=== PATIENT | female | born 1960 | race Caucasian/White ===

== ENCOUNTER 2017-06-16 10:31 | Emergency (ER) | payer BC, OTHER ==
[2017-06-16 10:46] VITALS: BP 149/77; PULSE 93; TEMP 98.1; BMI 30.2
--- NOTE | 2017-06-16 10:48 | PDOC ---
History of Present Illness - General Chief Complaint: Pain Stated Complaint: LLQ ABD PAIN Time Seen by Provider: 06/16/17 10:47 History Source: Patient Exam Limitations: No Limitations - History of Present Illness Initial Comments: 06/16/17 11:01 This is a 56-year-old female who comes in complaining of left lower quadrant abdominal pain 3 days. Patient denies any fevers, chills, nausea, vomiting or diarrhea. Patient went to an urgent care center and was told to come to the emergency room for CAT scan to rule out diverticulitis. Patient does have a history of diverticulosis. Patient also is complaining of some chronic back pain. Patient said the back pain however is chronic and she takes Tylenol for the pain. PAST MEDICAL HISTORY: Acute myelogenous leukemia in remission, high cholesterol , PAST SURGICAL HISTORY: no significant history FAMILY HISTORY: no pertinant history SOCIAL HISTORY: Pt lives with family and is employed. MEDICATIONS: reviewed ALLERGIES: As per nursing notes Review of Systems General: No fevers or chills, no weakness, no weight loss HEENT: No change in vision. No sore throat,. No ear pain CardioVascular: No chest pain or shortness of breath Respiratory:No cough, or wheezing. Gastrointestinal: no nausea, vomitting, diarrhea or constipation, No rectal bleeding, abdominal pain as per history of present illness Genitourinary: No dysuria, hematuria, or frequency Musculoskeletal: No joint or muscle pain or swelling Neurologic: No headache, vertigo, dizziness or loss of consciousness Psychiatric: nor depression Skin: No rashes or easy bruising Endocrine: no increased thirst or abnormal weight change Allergic: no skin or latex allergy All other systems reviewed and normal Exam: General: Well-nourished well-developed individual, no acute distress HEENT: Throat: Normal, tonsils normal, no erythema or exudate Neck: Supple, no meningeal signs, no lymphadenopathy Eyes::Pupils equal reactive and round, extraocular motion intact Chest: Nontender to palpation Cardiac: S1-S2 normal, regular rate and rhythm, no murmurs rubs or gallops Respiratory: Lungs clear to auscultation bilateral Abdomen: Soft, nondistended, normal bowel sounds, mildly tender to palpation across the lower abdomen no guarding or rebound. Extremities: Warm, dry, no cyanosis, clubbing, or edema Skin: No rashes Neuro: Alert and oriented x3, CN II - XII intact, nonfocal exam with normal strength, normal sensation, normal reflexes, normal gait, Psych: Normal mood and affect Medical decision making: This is a 56-year-old female who comes in complaining of abdominal pain. On exam patient does have pain across the lower abdomen, patient has a known history of diverticulosis, Will obtain labs: CBC, comp, lipase Will do a CT scan to rule out intra-abdominal pathology/ diverticulitis Will give fluids and patient does not want pain medication at this time Will reassess, follow up on labs and CT Past History - Past Medical History Allergies/Adverse Reactions: Allergies Allergy/AdvReac Type Severity Reaction Status Date / Time Sulfa (Sulfonamide Allergy Intermediate Swelling Verified 06/16/17 10:32 Antibiotics) Penicillins Allergy Mild Hives Verified 06/16/17 10:32 vancomycin Allergy Mild Swelling Verified 06/16/17 10:32 Home Medications: Ambulatory Orders Lisinopril [Prinivil] 2.5 mg PO DAILY 01/16/13 Acetaminophen [Tylenol Extra Strength] 1,000 mg PO Q6H PRN 08/11/14 Levocetirizine Dihydrochloride [Xyzal] 5 mg PO PRN PRN 08/11/14 Levofloxacin [Levaquin -] 500 mg PO DAILY #10 tablet 06/16/17 Metronidazole [Flagyl -] 500 mg PO BID #20 tablet 06/16/17 Anemia: Yes (THROMBCYTOPENIA) Cancer: Yes (AML (On remission). BONE MARROW TRANSPLANT) COPD: No - Immunization History Immunization Up to Date: No - Suicide/Smoking/Psychosocial Hx Smoking Status: No Smoking History: Never smoked Have you smoked in the past 12 months: No Number of Cigarettes Smoked Daily: 0 Information on smoking cessation initiated: No Hx Alcohol Use: Yes (SOCIAL) Drug/Substance Use Hx: No Substance Use Type: None *Physical Exam - Vital Signs Last Vital Signs Temp Pulse Resp BP Pulse Ox 98.1 F 93 H 20 149/77 97 06/16/17 10:32 06/16/17 10:32 06/16/17 10:32 06/16/17 10:32 06/16/17 10:32 ED Treatment Course - LABORATORY CBC & Chemistry Diagram: 06/16/17 11:20 06/16/17 12:00 *DC/Admit/Observation/Transfer Diagnosis at time of Disposition: Diverticulitis - Discharge Dispostion Disposition: HOME Admit: No - Prescriptions Prescriptions: Levofloxacin [Levaquin -] 500 mg PO DAILY #10 tablet Metronidazole [Flagyl -] 500 mg PO BID #20 tablet - Referrals - Patient Instructions Additional Instructions: Take Levaquin 1 tablet a day for 10 days Take Flagyl one tablet twice a day for 10 days. A diverticulitis diet is recommend as part of a short-term treatment plan for acute diverticulitis. Diverticula are small, bulging pouches that can form in the lining of the digestive system. They're found most often in the lower part of the large intestine (colon). This condition is called diverticulosis. In some cases, one or more of the pouches become inflamed or infected. This is known as diverticulitis. Mild cases of diverticulitis are usually treated with antibiotics and a diverticulitis diet, which includes clear liquids and low-fiber foods. More- severe cases typically require hospitalization. A diverticulitis diet is a temporary measure to give your digestive system a chance to rest. Oral intake is usually reduced until bleeding and diarrhea subside. A diverticulitis diet starts with only clear liquids for a few days. Examples of items allowed on a clear liquid diet include: Broth Fruit juices without pulp, such as apple juice Ice chips Ice pops without bits of fruit or fruit pulp Gelatin Water Tea or coffee without cream As you start feeling better, your doctor will recommend that you slowly add low- fiber foods. Examples of low-fiber foods include: Canned or cooked fruits without skin or seeds Canned or cooked vegetables such as green beans, carrots and potatoes (without the skin) Eggs, fish and poultry Refined white bread Fruit and vegetable juice with no pulp Low-fiber cereals Milk, yogurt and cheese White rice, pasta and noodles You should feel better within two or three days of starting the diet and antibiotics. If you haven't started feeling better by then, call your doctor. Also contact your doctor if: You develop a fever Your abdominal pain is worsening You're unable to keep clear liquids down These may indicate a complication that requires hospitalization. The diverticulitis diet has few risks. However, continuing a clear liquid diet for more than a few days can lead to weakness and other complications, since it doesn't provide enough of the nutrients your body needs. For this reason, your doctor will want you to transition back to a normal diet as soon as you can tolerate it. - Post Discharge Activity
[2017-06-16] MEDS ORDERED: SODIUM CHLORIDE 1,000 ML IV ONE (11:00)
[2017-06-16 11:54] LABS: HEMATOCRIT 44.4 % (32.4-45.2); HEMOGLOBIN 15.3 GM/dl (10.7-15.3); MCH 32.7 pg (25.7-33.7); MCHC 34.4 g/dl (32.0-36.0); MEAN CELL VOLUME 94.9 fl (80-96); MEAN PLT VOLUME 7.9 fl (7.5-11.1); PLATELET COUNT 149 K/MM3 (134-434); RBC 4.68 M/mm3 (3.60-5.2); RDW 11.9 % (11.6-15.6); WHITE BLOOD COUNT 4.2 K/mm3 (4.0-10.8)
[2017-06-16] MEDS ORDERED: METRONIDAZOLE 500 MG PREMIXED 500 MG/100 ML MG IVPB ONE ×2 (12:22→12:25)
[2017-06-16] MEDS ORDERED: LEVOFLOXACIN 500 MG IVPB 500 MG/100 ML BAG IVPB ONE ×2 (12:22→12:24)
[2017-06-16 12:34] LABS: PH,URINE 5.5 (4.5-8); URINE APPEARANCE Clear; URINE BILIRUBIN Negative (NEGATIVE); URINE GLUCOSE (UA) Negative (NEGATIVE); URINE KETONE Negative (NEGATIVE); URINE NITRITE Negative (NEGATIVE); URINE PROTEIN Trace (NEGATIVE); URINE UROBILINOGEN 0.2 (0.2-1.0)
[2017-06-16 12:35] LABS: URINE BLOOD Trace-intact (NEGATIVE); URINE COLOR YELLOW
[2017-06-16 12:35] LABS: ALBUMIN 3.9 g/dl (3.5-5.0); ALK PHOS 69 U/L (32-92); ANION GAP 4 (8-16); BILIRUBIN,TOTAL 0.5 mg/dl (0.2-1.0); BLOOD UREA NITROGEN 15 mg/dl (7-18); CHLORIDE 105 mmol/L (98-107); CO2 26 mmol/L (22-28); CREATININE 0.6 mg/dl (0.6-1.3); GLUCOSE,RANDOM 101 mg/dl (74-106); LIPASE 14 U/L (22-51); POTASSIUM 4.1 mmol/L (3.5-5.1); SGOT/AST 28 U/L (10-42); SGPT/ALT 38 U/L (10-40); SODIUM 135 mmol/L (136-145); TOT PROT 7.6 g/dl (6.4-8.3)
[2017-06-16 12:51] LABS: EPI CELLS FEW /HPF; URINE BACTERIA FEW /hpf (NEGATIVE)
[2017-06-16 13:18] LABS: BASO % 0.9 % (0-2.0); EOS % 0.3 % (0-4.5); MONO % 7.1 % (3.8-10.2); NEUT % 72.7 % (42.8-82.8)
== END 2017-06-16 13:33 | disposition home or self-care (01) ==
LOC: FER 10:31
PROC: 3E03329 Introduction of Other Anti-infective into Peripheral Vein, Percutaneous Approach (ICD-10-PCS; principal; 2017-06-16)
PROC: 3E0337Z Introduction of Electrolytic and Water Balance Substance into Peripheral Vein, Percutaneous Approach (ICD-10-PCS; 2017-06-16)
DX: K57.92 Diverticulitis of intestine, part unspecified, without perforation or abscess without bleeding (principal); D69.6 Thrombocytopenia, unspecified
CPT/HCPCS: 36415; 74176-TC; 80053; 81003; 81015; 83690; 85025; 99283-25

== ENCOUNTER 2017-07-16 07:10 | Emergency (ER) | payer BC ==
[2017-07-16 07:13] VITALS: BP 160/100; PULSE 86; TEMP 98.6; BMI 38.7
--- NOTE | 2017-07-16 07:21 | PDOC ---
History of Present Illness - General Chief Complaint: Pain, Acute Stated Complaint: LLQ PAIN Time Seen by Provider: 07/16/17 07:21 History Source: Patient - History of Present Illness Initial Comments: 07/16/17 07:39 Pt presents to the ED complaining of LUQ abdominal pain that began immediately prior to using the rest room and lasted seconds. Pain was greatly improved when she had a bowel movement. DEnies fever, nausea and vomiting, changes in her bowel habits. Currently, she is pain free, but does complain of slight pain with deep palpation of her LUQ. Patient presented with more severe and persistent abdominal pain in early June, and was found at that time to have diverticulitis. Her symptoms resolved after a course of antibiotics. She has a trip to [place] this evening , and is concerned that her symptoms will worsen while she is traveling. She was told by her PMD that diverticulitis can lead to perforation " in an instant " and is concerned that her symptoms will worsen. Past History - Past Medical History Allergies/Adverse Reactions: Allergies Allergy/AdvReac Type Severity Reaction Status Date / Time Sulfa (Sulfonamide Allergy Intermediate Swelling Verified 07/16/17 07:13 Antibiotics) Penicillins Allergy Mild Hives Verified 07/16/17 07:13 vancomycin Allergy Mild Swelling Verified 07/16/17 07:13 Home Medications: Ambulatory Orders Lisinopril [Prinivil] 5 mg PO DAILY 01/16/13 Levocetirizine Dihydrochloride [Xyzal] 5 mg PO PRN PRN 08/11/14 Levofloxacin [Levaquin -] 500 mg PO DAILY #14 tablet 07/16/17 Metronidazole [Flagyl -] 500 mg PO DAILY #14 tablet 07/16/17 Anemia: Yes (THROMBCYTOPENIA) Cancer: Yes (AML (On remission). BONE MARROW TRANSPLANT) COPD: No DVT: No GI Disorders: Yes (diverticulitis) - Immunization History Immunization Up to Date: No - Suicide/Smoking/Psychosocial Hx Smoking Status: No Smoking History: Never smoked Have you smoked in the past 12 months: No Number of Cigarettes Smoked Daily: 0 Hx Alcohol Use: No Drug/Substance Use Hx: No Substance Use Type: None Review of Systems - Review of Systems Able to Perform ROS?: Yes Is the patient limited Slovenian proficient: No Constitutional: No: Symptoms Reported, See HPI, Chills, Diaphoresis, Fever, Loss of Appetite, Malaise, Night Sweats, Weakness, Weight Stable, Unintentional Wgt. Loss, Unexplained wgt Loss, Other HEENTM: No: Symptoms Reported, See HPI, Eye Pain, Blurred Vision, Tearing, Recent change in vision, Double Vision, Cataracts, Ear Pain, Ocular Prothesis, Ear Discharge, Nose Pain, Nose Congestion, Tinnitus, Nose Bleeding, Hearing Loss , Throat Pain, Throat Swelling, Mouth Pain, Dental Problems, Difficulty Swallowing, Mouth Swelling, Other Respiratory: No: Symptoms reported, See HPI, Cough, Orthopnea, Shortness of Breath, SOB with Exertion, SOB at Rest, Stridor, Wheezing, Productive cough, Hemoptysis, Other Cardiac (ROS): No: Symptoms Reported, See HPI, Chest Pain, Edema, Irregular Heart Rate, Lightheadedness, Palpitations, Syncope, Chest Tightness, Other ABD/GI: No: Symptoms Reported, See HPI, Abdominal Distended, Abd. Pain w/ defecation, Blood Streaked Bowels, Constipated, Diarrhea, Difficulty Swallowing , Nausea, Poor Appetite, Poor Fluid Intake, Rectal Bleeding, Vomiting, Indigestion, Abdominal cramping, Tarry Stools, Other : No: Symptoms Reported, See HPI, Burning, Dysuria, Discharge, Frequency, Flank Pain, Hematuria, Incontinence, Pain, Urgency, Testicular Mass, Testicular Swelling, Lesions, Testicular Pain, Other Musculoskeletal: No: Symptoms Reported, See HPI, Back Pain, Gout, Joint Pain, Joint Swelling, Muscle Pain, Muscle Weakness, Neck Pain, Joint Stiffness, Other Integumentary: No: Symptoms Reported, See HPI, Bruising, Change in Color, Change in Hair/Nails, Dryness, Erythema, Flushing, Lesions, Lumps, Pallor, Pruritus, Rash, Sweating, Other Neurological: No: Symptoms reported, See HPI, Headache, Numbness, Paresthesia, Pre-Existing Deficit, Seizure, Tingling, Tremors, Weakness, Unsteady Gait, Ataxia, Dizziness, Other Psychiatric: No: Anxiety, Depression, Frequent Crying, Stressors, Sleep Pattern Change, Emotional Problems, Mood Swings, Change in Appetite, Other Endocrine: No: Symptoms Reported, See HPI, Excessive Sweating, Flushing, Intolerance to Cold, Intolerance to Heat, Increased Hunger, Increased Thirst, Increased Urine, Unexplained Weight Gain, Unexplained Weight Loss, Change in Weight, Other *Physical Exam - Vital Signs Last Vital Signs Temp Pulse Resp BP Pulse Ox 98.6 F 86 18 160/100 100 07/16/17 07:10 07/16/17 07:10 07/16/17 07:10 07/16/17 07:10 07/16/17 07:10 - Physical Exam General Appearance: Yes: Nourished, Appropriately Dressed HEENT: positive: Normal ENT Inspection Neck: positive: Trachea midline Respiratory/Chest: positive: Lungs Clear, Normal Breath Sounds Cardiovascular: positive: Regular Rhythm, Regular Rate Gastrointestinal/Abdominal: positive: Flat, Soft. negative: Normal Bowel Sounds , Tender, Organomegaly, Pulsatile Mass, Increased Bowel Sounds, Decreased BS, Protuberent, Distended, Guarding, Rebound, Tenderness, Hernia, Mass, Hepatomegaly, Spleenomegaly, Other Musculoskeletal: positive: Normal Inspection. negative: CVA Tenderness, CVA Tenderness (R), CVA Tenderness (L), Decreased Range of Motion, Muscle Spasm, Vertebral Tenderness, Other Extremity: positive: Normal Inspection, Normal Range of Motion Integumentary: positive: Normal Color, Dry, Warm. negative: Cyanotic, Erythema , Jaundice, Mottled, Pale, Cold, Clammy, Diaphoresis, Moist, Hives, Petechiae, Rash, Swelling, Ecchymosis, Bruising, Other Neurologic: positive: boarder machine II-XII NML intact, Fully Oriented, Alert, Normal Mood/ Affect Medical Decision Making - Medical Decision Making 07/16/17 07:35 Pt presents to the ED complaining of LUQ pain that she describes as very transient and minimally severe. DEnies other symptoms. PAtient is concerned that she may develop diverticulits during a planned trip to [facility]. She has no signs or symptoms consistent with diverticulitis. I have ordered her levaquin and flagyl to use incase her pain becomes worse. I instructed her to return to the ED for severe pain, fever, other new or worsening symptoms. 07/16/17 07:46 *DC/Admit/Observation/Transfer Diagnosis at time of Disposition: Diverticulitis - Discharge Dispostion Disposition: HOME Condition at time of disposition: Good Admit: No - Prescriptions Prescriptions: Levofloxacin [Levaquin -] 500 mg PO DAILY #14 tablet Metronidazole [Flagyl -] 500 mg PO DAILY #14 tablet - Referrals Referrals: Cem Morales MD [Primary Care Provider] - - Patient Instructions Printed Discharge Instructions: DI for Abdominal Pain-Adult Additional Instructions: DO not take the antibiotics unless you have worsening pain or fever. Return to the ED for severe pain, high fever, persistent nausea and vomiting, other new or worsening symptoms. Also return to the ED if you start the antibiotics and do not have improvement in your symptoms within three days. - Post Discharge Activity
== END 2017-07-16 07:45 | disposition home or self-care (01) ==
LOC: FER 07:10
DX: K57.92 Diverticulitis of intestine, part unspecified, without perforation or abscess without bleeding (principal); C92.01 Acute myeloblastic leukemia, in remission; D69.6 Thrombocytopenia, unspecified
CPT/HCPCS: 99282-25

== ENCOUNTER 2019-03-01 13:08 | Emergency (ER) | payer OTHER, BC ==
--- NOTE | 2019-03-01 13:14 | PDOC ---
History of Present Illness - General Chief Complaint: Nasal Bleeding Stated Complaint: NOSE BLEED Time Seen by Provider: 03/01/19 13:12 History Source: Patient Exam Limitations: No Limitations - History of Present Illness Initial Comments: 58 yo F history AML (in remission for 10 years), thrombocytopenia, seasonal allergies, HL presents with nosebleed. She states she was driving, felt as if her nose was congested. She blew her nose and suddenly developed heavy bleeding with passage of a large clot. She states she has been using nasonex recently, has been off her xyzal in anticipation of allergy testing. Denies LH, LOC, weakness. She states her most recent platelet counts have ranged from 100-125. Past History - Past Medical History Allergies/Adverse Reactions: Allergies Allergy/AdvReac Type Severity Reaction Status Date / Time Sulfa (Sulfonamide Allergy Intermediate Swelling Verified 03/01/19 13:17 Antibiotics) vancomycin Allergy Mild Swelling Verified 03/01/19 13:17 Home Medications: Ambulatory Orders Levocetirizine Dihydrochloride [Xyzal] 5 mg PO PRN PRN 08/11/14 Lisinopril [Zestril] 40 mg PO DAILY 03/01/19 Mometasone Furoate [Asmanex 220Mcg -] 1 inh IH HS 03/01/19 Montelukast Sodium [Singulair] 10 mg PO HS 03/01/19 Pitavastatin Calcium [Livalo] 2 mg PO HS 03/01/19 Anemia: Yes (THROMBCYTOPENIA) Cancer: Yes (AML (On remission). BONE MARROW TRANSPLANT) COPD: No DVT: No GI Disorders: Yes (diverticulitis) - Immunization History Immunization Up to Date: No - Suicide/Smoking/Psychosocial Hx Smoking Status: No Smoking History: Never smoked Have you smoked in the past 12 months: No Number of Cigarettes Smoked Daily: 0 Hx Alcohol Use: No Drug/Substance Use Hx: No Substance Use Type: None Review of Systems - Review of Systems Able to Perform ROS?: Yes Comments:: GENERAL/CONSTITUTIONAL: No fever or chills. No weakness. HEAD, EYES, EARS, NOSE AND THROAT: No change in vision. No ear pain or discharge. No sore throat. +Epistaxis. SKIN: No rash. NEUROLOGIC: No headache, vertigo, loss of consciousness, or change in strength/ sensation. ENDOCRINE: No increased thirst. No abnormal weight change. HEMATOLOGIC/LYMPHATIC: No anemia. +History of low platelet counts. ALLERGIC/IMMUNOLOGIC: No hives or skin allergy. *Physical Exam - Physical Exam Comments: GENERAL: Awake, alert, and fully oriented, in no acute distress HEAD: No signs of trauma EYES: PERRLA, EOMI, sclera anicteric, conjunctiva clear ENT: Auricles normal inspection, hearing grossly normal, oropharynx clear without exudates. Moist mucosa. +Epistaxis from R nare NECK: Normal ROM, supple, no lymphadenopathy, JVD, or masses EXTREMITIES: Normal range of motion, no edema. No clubbing or cyanosis. No cords, erythema, or tenderness NEUROLOGICAL: Cranial nerves II through XII grossly intact. Normal speech, normal gait. Motor and sensation intact SKIN: Warm, dry, normal turgor, no rashes or lesions noted. ED Treatment Course - LABORATORY CBC & Chemistry Diagram: 03/01/19 13:40 03/01/19 13:40 Medical Decision Making - Medical Decision Making 03/01/19 13:41 Pt was not correctly applying direct pressure on arrival in ED. I demonstrated how to apply direct pressure, will hold for 10-15 minutes then reassess whether she can be cauterized or if she will need packing. Will check platelets in light of prior history. 03/01/19 14:09 Pt continues to have mild bleeding from R nare. Will cont to hold pressure. She is contacting Dr. Daniel now, as she regularly follows up with him. She would prefer not to have it packed. As I cannot visually confirm the origin of the bleeding, I cannot cauterize in the ED. *DC/Admit/Observation/Transfer Diagnosis at time of Disposition: Epistaxis - Discharge Dispostion Disposition: HOME Condition at time of disposition: Stable Decision to Admit order: No - Referrals Referrals: Geo Daniel MD [Staff Physician] - - Patient Instructions Printed Discharge Instructions: DI for Nosebleed - Post Discharge Activity
[2019-03-01 13:23] VITALS: TEMP 98.1; BMI 37.1
[2019-03-01] MEDS ORDERED: OXYMETAZOLINE 0.05% NASAL SOLUTION 15 ML BOTTLE NS ONE ×2 (13:31→13:46)
[2019-03-01 14:00] LABS: EOS % 0.6 % (0-4.5); MCH 32.9 pg (25.7-33.7); MEAN PLT VOLUME 7.3 fl (7.5-11.1); PLATELET COUNT 143 K/MM3 (134-434)
[2019-03-01 14:07] LABS: BASO % 0.3 % (0-2.0); HEMOGLOBIN 13.8 GM/dl (10.7-15.3); LYMPH % 41.4 % (8-40); MCHC 34.5 g/dl (32.0-36.0); MEAN CELL VOLUME 95.3 fl (80-96); MONO % 10.8 % (3.8-10.2); NEUT % 46.9 % (42.8-82.8); RDW 11.7 % (11.6-15.6)
[2019-03-01 14:14] LABS: ALBUMIN 4.1 g/dl (3.4-5.0); BILIRUBIN,TOTAL 0.5 mg/dl (0.2-1); CALCIUM 9.4 mg/dl (8.5-10); CREATININE 0.6 mg/dl (0.55-1.3); TOT PROT 8.5 g/dl (6.4-8.2)
[2019-03-01 14:27] VITALS: BP 163/92; PULSE 85
== END 2019-03-01 14:25 | disposition home or self-care (01) ==
LOC: FER 13:08
DX: R04.0 Epistaxis (principal); D69.6 Thrombocytopenia, unspecified; C92.00 Acute myeloblastic leukemia, not having achieved remission; J30.2 Other seasonal allergic rhinitis
CPT/HCPCS: 36415; 80053; 85025; 86850; 86900; 86901; 99282-25

== ENCOUNTER 2020-10-07 06:26 | Day surgery (SDC) | payer OTHER, BC ==
[2020-10-05 11:20] VITALS: BMI 38.4
[2020-10-07] MEDS: CYCLOPENTOLATE 2% OPHTH SOLN 2 ML BOTTLE ONE ×3 (07:10→07:20)
[2020-10-07] MEDS: TROPICAMIDE 1% OPHTH SOLN 15 ML BOTTLE ONE ×3 (07:10→07:20)
[2020-10-07] MEDS: CIPROFLOXACIN 0.3% EYE DROPS 5 ML BOTTLE ONE ×3 (07:10→07:20)
[2020-10-07] MEDS: PHENYLEPHRINE 2.5% OPHTH SOLN 15 ML BOTTLE ONE ×3 (07:10→07:20)
[2020-10-07] MEDS ORDERED: EPINEPHrine/PF 1 MG/1 ML (1:1,000) AMPULE ONE (07:20)
[2020-10-07] MEDS ORDERED: LIDOCAINE 1% P/F 10 MG/ML VIAL ONE (07:20)
[2020-10-07] MEDS ORDERED: TETRACAINE 0.5% OPHTH SOLN 2 ML BOTTLE ONE (07:20)
[2020-10-07] MEDS ORDERED: CARBACHOL 0.01% INTRA-OCULAR 1.5 ML VIAL ONE (07:21)
[2020-10-07] MEDS ORDERED: NEO/POLYMYX B SULF/DEXAMETH OPHTHALMIC 5ML BOTTLE ONE (07:21)
[2020-10-07] MEDS ORDERED: BSS (NA/CA/MG/K) BALANCED SALT SOLUTION OPHTH SOLN 15 ML BOTTLE ONE (07:21)
[2020-10-07] MEDS ORDERED: MIDAZOLAM HCL 2 MG/2 ML SINGLE DOSE VIAL ONE (07:47)
[2020-10-07 09:24] VITALS: TEMP 98
[2020-10-07 09:38] VITALS: BP 134/74; PULSE 74
== END 2020-10-07 09:55 | disposition home or self-care (01) ==
LOC: FASU 06:26
PROVIDERS: ATTEND Ophthalmology
PROC: 08RK3JZ Replacement of Left Lens with Synthetic Substitute, Percutaneous Approach (ICD-10-PCS; principal; 2020-10-07 08:41)
DX: H26.8 Other specified cataract (principal)

== ENCOUNTER 2020-10-21 06:22 | Day surgery (SDC) | payer OTHER, BC ==
[2020-10-19 12:47] VITALS: BMI 38.4
[2020-10-21] MEDS: CYCLOPENTOLATE 2% OPHTH SOLN 2 ML BOTTLE ONE ×3 (07:10→07:20)
[2020-10-21] MEDS: TROPICAMIDE 1% OPHTH SOLN 15 ML BOTTLE ONE ×3 (07:10→07:20)
[2020-10-21] MEDS: CIPROFLOXACIN 0.3% EYE DROPS 5 ML BOTTLE ONE ×3 (07:10→07:20)
[2020-10-21] MEDS: PHENYLEPHRINE 2.5% OPHTH SOLN 15 ML BOTTLE ONE ×3 (07:10→07:20)
[2020-10-21] MEDS ORDERED: EPINEPHrine/PF 1 MG/1 ML (1:1,000) AMPULE ONE (07:14)
[2020-10-21] MEDS ORDERED: LIDOCAINE 1% P/F 10 MG/ML VIAL ONE (07:15)
[2020-10-21] MEDS ORDERED: TETRACAINE 0.5% OPHTH SOLN 2 ML BOTTLE ONE (07:15)
[2020-10-21] MEDS ORDERED: BSS (NA/CA/MG/K) BALANCED SALT SOLUTION OPHTH SOLN 15 ML BOTTLE ONE (07:15)
[2020-10-21] MEDS ORDERED: CARBACHOL 0.01% INTRA-OCULAR 1.5 ML VIAL ONE (07:16)
[2020-10-21] MEDS ORDERED: NEO/POLYMYX B SULF/DEXAMETH OPHTHALMIC 5ML BOTTLE ONE (07:16)
[2020-10-21] MEDS ORDERED: MIDAZOLAM HCL 2 MG/2 ML SINGLE DOSE VIAL ONE (07:45)
[2020-10-21 09:21] VITALS: BP 115/56; PULSE 57
[2020-10-21 10:11] VITALS: TEMP 97.6
== END 2020-10-21 09:31 | disposition home or self-care (01) ==
LOC: FASU 06:22
PROVIDERS: ATTEND Ophthalmology
PROC: 08RJ3JZ Replacement of Right Lens with Synthetic Substitute, Percutaneous Approach (ICD-10-PCS; principal; 2020-10-21 08:00)
DX: H26.8 Other specified cataract (principal)

== ENCOUNTER 2021-04-08 08:42 | Emergency (ER) | payer BC, OTHER ==
[2021-04-08] MEDS ORDERED: SODIUM CHLORIDE 1,000 ML IV STA (09:00)
[2021-04-08 09:08] VITALS: PULSE 75; TEMP 98.4; BMI 39.3
[2021-04-08 09:32] LABS: EPITHELIAL CELLS FEW /hpf
[2021-04-08 10:08] LABS: EOS % 0.3 % (0-4.5)
[2021-04-08 10:14] LABS: BASO % 3.3 % (0-2.0); HEMATOCRIT 36.2 % (32.4-45.2); HEMOGLOBIN 12.9 GM/dl (10.7-15.3); LYMPH % 29.2 % (8-40); MCH 33.9 pg (25.7-33.7); MCHC 35.7 g/dl (32.0-36.0); MEAN PLT VOLUME 7.4 fl (7.5-11.1); MONO % 10.8 % (3.8-10.2); NEUT % 56.4 % (42.8-82.8); PLATELET COUNT 120 10^3/uL (134-434); RBC 3.81 M/mm3 (3.60-5.2); RDW 12.3 % (11.6-15.6); WHITE BLOOD COUNT 3.6 K/mm3 (4.0-10.8)
[2021-04-08 10:19] LABS: ALBUMIN 4.1 g/dl (3.4-5.0); BILIRUBIN,TOTAL 0.6 mg/dl (0.2-1); CALCIUM 9.2 mg/dl (8.5-10); CREATININE 0.9 mg/dl (0.55-1.3); TOT PROT 8.7 g/dl (6.4-8.2)
[2021-04-08] MEDS ORDERED: metroNIDAZOLE 250 MG TABLET PO ONE (11:33)
[2021-04-08] MEDS ORDERED: levoFLOXacin 750 MG TABLET PO ONE (11:33)
[2021-04-08 11:58] VITALS: BP 146/86
== END 2021-04-08 12:01 | disposition home or self-care (01) ==
LOC: FER 08:42
PROC: 3E0337Z Introduction of Electrolytic and Water Balance Substance into Peripheral Vein, Percutaneous Approach (ICD-10-PCS; principal; 2021-04-08)
DX: K57.92 Diverticulitis of intestine, part unspecified, without perforation or abscess without bleeding (principal)
CPT/HCPCS: 36415; 74177-TC; 80053; 81003; 81015; 83690; 85025; 87086; 99285-25

== ENCOUNTER 2021-12-07 14:05 | Inpatient (IN) | payer BC, OTHER ==
[2021-12-07] MEDS ORDERED: ONDANSETRON 4 MG/2 ML VIAL IVPUSH ONE ×2 (14:39→19:53)
[2021-12-07] MEDS ORDERED: ACETAMINOPHEN 1000 MG/100 ML BAG IVPB ONE (14:39)
[2021-12-07] MEDS ORDERED: SODIUM CHLORIDE 1,000 ML IV STA ×2 (14:39→19:34)
[2021-12-07] MEDS ORDERED: FAMOTIDINE 20 MG/50 ML IVPB 20 MG/50 ML MG IVPB ONE (14:39)
[2021-12-07] MEDS ORDERED: ACETAMINOPHEN INJECTION 100 ML IVPB ONE (14:47)
[2021-12-07] MEDS ORDERED: ONDANSETRON 4 MG/2 ML VIAL ONE (14:47)
[2021-12-07 15:12] LABS: ALBUMIN 4.2 g/dl (3.4-5.0); BILIRUBIN,TOTAL 0.2 mg/dl (0.2-1); CALCIUM 9.8 mg/dl (8.5-10); CREATININE 0.9 mg/dl (0.55-1.3); HEMATOCRIT 38.9 % (32.4-45.2); HEMOGLOBIN 13.3 G/dL (10.7-15.3); MCHC 34.3 g/dl (32.0-36.0); MEAN CELL VOLUME 93.3 fl (80-96); MEAN PLT VOLUME 7.6 fl (7.5-11.1); PLATELET COUNT 125.9 10^3/uL (134-434); RBC 4.17 10^6/uL (3.60-5.2); RDW 13.6 % (11.6-15.6); TOT PROT 8.8 g/dl (6.4-8.2)
[2021-12-07] MEDS ORDERED: morphine CARPU-JECT 4 MG/1 ML DISP.SYRIN IVPUSH ONE (16:58)
[2021-12-07] MEDS ORDERED: morphine SULFATE 4 MG/ML VIAL ONE ×2 (17:02→19:53)
[2021-12-07] MEDS ORDERED: LIDOCAINE VISCOUS 2% ORAL/TOP 15 ML UNIT-DOSE CUP MM ONE (17:41)
[2021-12-07] MEDS ORDERED: MAG HYDROX/AL HYDROX/SIMETH 30 ML UNIT-DOSE CUP PO ONE (17:41)
[2021-12-07] MEDS ORDERED: MAG HYDROX/AL HYDROX/SIMETH 30 ML UNIT-DOSE CUP ONE (17:42)
[2021-12-07] MEDS ORDERED: LIDOCAINE VISCOUS 2% ORAL/TOP 15 ML UNIT-DOSE CUP ONE (17:42)
[2021-12-07] MEDS ORDERED: POLYETHYLENE GLYCOL (HEALTHYLAX) 3350 17 GM PACKET PO PRN (19:34)
[2021-12-07] MEDS ORDERED: SODIUM CHLORIDE 1,000 ML IV SCH (19:45)
[2021-12-07] MEDS ORDERED: ONDANSETRON 4 MG/2 ML VIAL IVPUSH PRN (19:51)
[2021-12-07] MEDS ORDERED: morphine CARPU-JECT 8 MG/1 ML DISP.SYRIN IVPUSH ONE (19:51)
[2021-12-07 21:48] VITALS: BMI 40.2
[2021-12-07] MEDS: NEBIVOLOL 10 MG TABLET (FP) PO SCH (22:17)
[2021-12-08] MEDS: ACETAMINOPHEN 1000 MG/100 ML BAG IVPB PRN ×3 (01:17→19:54)
[2021-12-08 08:10] LABS: INR 1.09 (0.83-1.09); PROTHROMBIN TIME (PATIENT) 12.6 SEC (9.7-13.0)
[2021-12-08 08:13] LABS: ACTIVATED PTT 26.5 SECONDS (25.2-36.5)
[2021-12-08 08:20] LABS: ALBUMIN 3.3 g/dl (3.4-5.0); BILIRUBIN,TOTAL 0.4 mg/dl (0.2-1); CALCIUM 8.5 mg/dl (8.5-10); CREATININE 0.9 mg/dl (0.55-1.3); MAGNESIUM 1.7 mg/dL (1.8-2.4); PHOSPHOROUS 2.8 mg/dl (2.5-4.9); TOT PROT 7.2 g/dl (6.4-8.2)
[2021-12-08 08:32] LABS: HEMATOCRIT 33.3 % (32.4-45.2); HEMOGLOBIN 11.8 G/dL (10.7-15.3); MCHC 35.3 g/dl (32.0-36.0); MEAN CELL VOLUME 93.4 fl (80-96); MEAN PLT VOLUME 7.6 fl (7.5-11.1); PLATELET COUNT 98.2 10^3/uL (134-434); RBC 3.57 10^6/uL (3.60-5.2); RDW 13.7 % (11.6-15.6); WHITE BLOOD COUNT 5.7 10^3/uL (4.0-10.8)
[2021-12-08] MEDS: PANTOPRAZOLE SODIUM 40 MG VIAL IVPUSH SCH (09:25)
[2021-12-08] MEDS: ENOXAPARIN NA (PORCINE) 40 MG/0.4 ML DISP.SYRIN SQ SCH ×2 (09:25→11:57)
[2021-12-08] MEDS: LISINOPRIL 20 MG TABLET PO SCH (09:25)
[2021-12-08] MEDS: HYDROCHLOROTHIAZIDE 25 MG TABLET (FP) PO SCH (09:47)
[2021-12-08] MEDS ORDERED: MAGNESIUM SULF 50% (8.12 MEQ/2 ML-1 GM VIAL) IVPB ONE (11:18)
[2021-12-08] MEDS: morphine SULFATE 4 MG/ML VIAL IVPUSH PRN ×2 (11:52→18:32)
[2021-12-08] MEDS ORDERED: MAGNESIUM 1GM/D5W - 1 GM/100 ML IVPB IVPB ONE (12:00)
[2021-12-08] MEDS: NEBIVOLOL 10 MG TABLET (FP) PO SCH (22:00)
[2021-12-08] MEDS: ATORVASTATIN CA 10 MG TABLET (FP) PO SCH (22:00)
[2021-12-08] MEDS: ACETAMINOPHEN 325 MG TABLET (FP) PO PRN (22:55)
[2021-12-09] MEDS: ATORVASTATIN CA 10 MG TABLET (FP) PO SCH ×2 (01:00→22:17)
[2021-12-09] MEDS: ACETAMINOPHEN 325 MG TABLET (FP) PO PRN ×2 (05:07→12:25)
[2021-12-09 08:39] LABS: HEMATOCRIT 30.6 % (32.4-45.2); HEMOGLOBIN 10.6 G/dL (10.7-15.3); MCH 32.5 pg (25.7-33.7); MCHC 34.6 g/dl (32.0-36.0); MEAN PLT VOLUME 8.8 fl (7.5-11.1); PLATELET COUNT 102.9 10^3/uL (134-434); RBC 3.26 10^6/uL (3.60-5.2); RDW 13.5 % (11.6-15.6); WHITE BLOOD COUNT 9.6 10^3/uL (4.0-10.8)
[2021-12-09 08:41] LABS: ALBUMIN 2.8 g/dl (3.4-5.0); BILIRUBIN,TOTAL 0.6 mg/dl (0.2-1); CREATININE 0.7 mg/dl (0.55-1.3); MAGNESIUM 1.8 mg/dL (1.8-2.4); TOT PROT 6.4 g/dl (6.4-8.2)
[2021-12-09] MEDS: LISINOPRIL 20 MG TABLET PO SCH (10:00)
[2021-12-09] MEDS: HYDROCHLOROTHIAZIDE 25 MG TABLET (FP) PO SCH (10:01)
[2021-12-09] MEDS: ENOXAPARIN NA (PORCINE) 40 MG/0.4 ML DISP.SYRIN SQ SCH (10:02)
[2021-12-09] MEDS: PANTOPRAZOLE SODIUM 40 MG VIAL IVPUSH SCH (10:02)
[2021-12-09] MEDS: morphine SULFATE 4 MG/ML VIAL IVPUSH PRN (19:02)
[2021-12-09] MEDS: NEBIVOLOL 10 MG TABLET (FP) PO SCH (22:17)
[2021-12-10 07:05] VITALS: BP 148/71; PULSE 74; TEMP 99.6
[2021-12-10] MEDS: LISINOPRIL 20 MG TABLET PO SCH (09:28)
[2021-12-10] MEDS: ENOXAPARIN NA (PORCINE) 40 MG/0.4 ML DISP.SYRIN SQ SCH (09:30)
[2021-12-10] MEDS: PANTOPRAZOLE SODIUM 40 MG VIAL IVPUSH SCH (09:30)
[2021-12-10] MEDS: HYDROCHLOROTHIAZIDE 25 MG TABLET (FP) PO SCH (09:32)
== END 2021-12-10 11:32 | disposition home or self-care (01) | DRG 440 ==
LOC: FER 14:05 → FM/S 19:33
PROVIDERS: ADMIT Hospitalist; ATTEND Nurse Practitioner Acute Care
DX: K85.80 Other acute pancreatitis without necrosis or infection (principal); E78.5 Hyperlipidemia, unspecified; D69.6 Thrombocytopenia, unspecified; K21.9 Gastro-esophageal reflux disease without esophagitis; I10 Essential (primary) hypertension; Z85.6 Personal history of leukemia
CPT/HCPCS: 0241U-QW; 36415; 71046-TC-FY; 74176-TC; 76705-TC; 80053; 80061; 83690; 83735; 84100; 85025; 85027; 85610; 85730; 99285-25

== ENCOUNTER 2022-05-19 07:47 | Observation (INO) | payer BC ==
[2022-05-19 08:07] VITALS: BMI 38.9
[2022-05-19] MEDS ORDERED: ACETAMINOPHEN 1000 MG/100 ML BAG IVPB ONE (08:16)
[2022-05-19] MEDS ORDERED: SODIUM CHLORIDE 0.9% 500 ML INFUS.BAG IV ONE ×2 (08:16→11:31)
[2022-05-19] MEDS ORDERED: ACETAMINOPHEN INJECTION 100 ML IVPB ONE ×2 (08:26→16:17)
[2022-05-19 09:14] LABS: HEMATOCRIT 39.4 % (32.4-45.2); HEMOGLOBIN 13.4 G/dL (10.7-15.3); MCH 31.5 pg (25.7-33.7); MEAN CELL VOLUME 92.6 fl (80-96); MEAN PLT VOLUME 7.9 fl (7.5-11.1); PLATELET COUNT 102.2 10^3/uL (134-434); RBC 4.26 10^6/uL (3.60-5.2); RDW 13.2 % (11.6-15.6); WHITE BLOOD COUNT 3.4 10^3/uL (4.0-10.8)
[2022-05-19 09:15] LABS: EPITHELIAL CELLS FEW /hpf
[2022-05-19 09:18] LABS: ALBUMIN 4.2 g/dl (3.4-5.0); BILIRUBIN,TOTAL 0.5 mg/dl (0.2-1); CALCIUM 9.6 mg/dl (8.5-10); CREATININE 0.9 mg/dl (0.55-1.3); INR 1.03 (0.83-1.09); MAGNESIUM 1.9 mg/dL (1.8-2.4); PHOSPHOROUS 3.7 mg/dl (2.5-4.9); PROTHROMBIN TIME (PATIENT) 11.9 SEC (9.7-13.0)
[2022-05-19] MEDS ORDERED: oxyCODONE HCL 5 MG TABLET PO PRN ×2 (15:37)
[2022-05-19] MEDS: SODIUM CHLORIDE 1,000 ML IV SCH ×2 (16:27→22:50)
[2022-05-19] MEDS: ACETAMINOPHEN 1000 MG/100 ML BAG IVPB SCH ×2 (16:27→22:48)
[2022-05-19] MEDS: NEBIVOLOL 10 MG TABLET (FP) PO SCH ×2 (20:57→22:49)
[2022-05-20 01:50] VITALS: RESP 18
[2022-05-20] MEDS: ACETAMINOPHEN 1000 MG/100 ML BAG IVPB SCH ×2 (03:30→10:26)
[2022-05-20] MEDS ORDERED: PANTOPRAZOLE 40 MG TABLET PO SCH (10:00)
[2022-05-20] MEDS ORDERED: LISINOPRIL 20 MG TABLET PO SCH (10:00)
[2022-05-20] MEDS ORDERED: HYDROCHLOROTHIAZIDE 25 MG TABLET (FP) PO SCH (10:00)
[2022-05-20] MEDS: SODIUM CHLORIDE 1,000 ML IV SCH (10:25)
[2022-05-20] MEDS: ENOXAPARIN NA (PORCINE) 40 MG/0.4 ML DISP.SYRIN SQ SCH ×2 (10:28→10:59)
[2022-05-20 10:50] LABS: HEMATOCRIT 34.9 % (32.4-45.2); HEMOGLOBIN 11.8 GM/dL (10.7-15.3); MCH 31.1 pg (25.7-33.7); MCHC 33.7 g/dl (32.0-36.0); MEAN CELL VOLUME 92.3 fl (80-96); RBC 3.78 M/mm3 (3.60-5.2); WHITE BLOOD COUNT 3.1 K/mm3 (4.0-10.0)
[2022-05-20 10:51] LABS: PLATELET COUNT 98 10^3/uL (134-434)
[2022-05-20 11:20] LABS: CHOLESTEROL 133 mg/dL (50-200); HDL CHOLESTEROL 48 mg/dL (40-60); LDL CHOLESTEROL (ONLY SJRH) 68 mg/dL (5-100); TRIGLYCERIDES 119 mg/dL (0-150)
[2022-05-20 12:03] LABS: LIPASE 1071 U/L (73-393)
[2022-05-20 12:26] LABS: GLUCOSE,RANDOM 88 mg/dL (74-106)
[2022-05-20 12:27] LABS: CALCIUM 8.9 mg/dL (8.5-10.1); CHLORIDE 109 mmol/L (98-107); CO2 25 mmol/L (21-32); CREATININE 0.8 mg/dL (0.55-1.3); MAGNESIUM 1.9 mg/dL (1.8-2.4); PHOSPHOROUS 2.6 mg/dL (2.5-4.9); SODIUM 142 mmol/L (136-145)
[2022-05-20 12:28] LABS: ALBUMIN 3.2 g/dl (3.4-5.0); BILIRUBIN,TOTAL 0.3 mg/dL (0.2-1); TOT PROT 7.8 g/dl (6.4-8.2)
[2022-05-20 12:29] LABS: ALK PHOS 58 U/L (45-117); SGOT/AST 30 U/L (15-37); SGPT/ALT 27 U/L (13-61)
[2022-05-20 13:46] VITALS: PULSE 63
[2022-05-20 14:22] VITALS: BP 139/72; TEMP 97.7
[2022-05-24 17:14] LABS: ATYPICAL pANCA <1:20 titer (Neg:<1:20); C-ANCA <1:20 titer (Neg:<1:20)
== END 2022-05-20 15:19 | disposition home or self-care (01) ==
LOC: FER 07:47 → J6S 15:31 → INTOOBSV 22:07 → UNDOADMOB 22:07 → J6S 22:07
PROVIDERS: ADMIT Internal Medicine; ATTEND Internal Medicine
PROC: 3E033NZ Introduction of Analgesics, Hypnotics, Sedatives into Peripheral Vein, Percutaneous Approach (ICD-10-PCS; principal; 2022-05-19)
PROC: 3E0337Z Introduction of Electrolytic and Water Balance Substance into Peripheral Vein, Percutaneous Approach (ICD-10-PCS; 2022-05-19)
DX: K85.90 Acute pancreatitis without necrosis or infection, unspecified (principal); E86.0 Dehydration; K21.9 Gastro-esophageal reflux disease without esophagitis; C92.01 Acute myeloblastic leukemia, in remission; E78.5 Hyperlipidemia, unspecified; I10 Essential (primary) hypertension; K29.70 Gastritis, unspecified, without bleeding; D69.6 Thrombocytopenia, unspecified; Z86.16 Personal history of COVID-19; K42.9 Umbilical hernia without obstruction or gangrene; Z88.2 Allergy status to sulfonamides
CPT/HCPCS: 0241U-QW; 36415; 74177-TC; 80053; 80061; 81003; 81015; 82787; 82962; 83520; 83605; 83690; 83735; 84100; 84484; 85027; 85610; 86038; 86256; 87086; 93005; 99285-25; C1887; G0378; Q9967

== ENCOUNTER 2022-07-24 06:43 | Emergency (ER) | payer BC ==
[2022-07-24 06:59] VITALS: RESP 16; BMI 39.1
[2022-07-24] MEDS ORDERED: KETOROLAC TROMETHAMINE 30 MG/1 ML VIAL IM ONE (07:13)
[2022-07-24 08:40] LABS: HEMATOCRIT 33.1 % (32.4-45.2); HEMOGLOBIN 11.2 G/dL (10.7-15.3); MCHC 33.8 g/dl (32.0-36.0); MEAN CELL VOLUME 91.8 fl (80-96); MEAN PLT VOLUME 7.6 fl (7.5-11.1); PLATELET COUNT 108.1 10^3/uL (134-434); RBC 3.61 10^6/uL (3.60-5.2); RDW 13.8 % (11.6-15.6)
[2022-07-24 09:02] LABS: ALBUMIN 3.9 g/dl (3.4-5.0); BILIRUBIN,TOTAL 0.5 mg/dl (0.2-1); CALCIUM 9.2 mg/dl (8.5-10); CREATININE 1.5 mg/dl (0.55-1.3); TOT PROT 8.4 g/dl (6.4-8.2)
[2022-07-24] MEDS ORDERED: KETOROLAC TROMETHAMINE 30 MG/1 ML VIAL ONE (09:03)
[2022-07-24] MEDS ORDERED: SODIUM CHLORIDE 0.9% 500 ML INFUS.BAG IV ONE (09:18)
[2022-07-24 10:05] LABS: CALCIUM OXALATE CRYSTALS FEW /hpf (NONE SEEN); EPITHELIAL CELLS FEW /hpf
[2022-07-24 10:10] LABS: PLATELET ESTIMATE DECREASED
[2022-07-24 11:44] VITALS: BP 130/72; PULSE 54; TEMP 97.6
[2022-07-24] MEDS ORDERED: AMOX TR/POT CLAV 875MG/125MG TABLETS (FP) PO ONE (11:58)
[2022-07-24] MEDS ORDERED: AMOX TR/POT CLAV 875MG/125MG TABLETS (FP) ONE (12:14)
== END 2022-07-24 12:20 | disposition home or self-care (01) ==
LOC: FER 06:43
PROC: 3E0233Z Introduction of Anti-inflammatory into Muscle, Percutaneous Approach (ICD-10-PCS; principal; 2022-07-24)
DX: R10.32 Left lower quadrant pain (principal)
CPT/HCPCS: 36415; 74177-TC; 80053; 81003; 81015; 83690; 85027; 87086; 99285-25; Q9967

== ENCOUNTER 2022-08-22 04:23 | Day surgery (SDC) | payer BC ==
[2022-08-18 10:56] VITALS: BMI 37.5
[2022-08-22] MEDS ORDERED: MIDAZOLAM HCL 2 MG/2 ML SINGLE DOSE VIAL ONE (11:26)
[2022-08-22] MEDS ORDERED: SUCCINYLCHOLINE CHLORIDE 200 MG/10 ML SYRINGE ONE (11:31)
[2022-08-22] MEDS ORDERED: ceFAZolin SODIUM 1 GM VIAL IVPB ONE (11:40)
[2022-08-22] MEDS ORDERED: oxyCODONE HCL 5 MG TABLET PO PRN (12:12)
[2022-08-22] MEDS ORDERED: PROMETHAZINE HCL 25 MG/1 ML VIAL IVPB PRN (12:12)
[2022-08-22] MEDS ORDERED: ONDANSETRON 4 MG/2 ML VIAL IVPUSH PRN (12:12)
[2022-08-22] MEDS ORDERED: LACTATED RINGERS SOLUTION 1,000 ML IV SCH (12:15)
[2022-08-22] MEDS ORDERED: ONDANSETRON 4 MG/2 ML VIAL ONE (13:54)
[2022-08-22 16:02] VITALS: TEMP 97.2
[2022-08-22 16:03] VITALS: BP 140/60; PULSE 53; RESP 14
== END 2022-08-22 12:47 | disposition home or self-care (01) ==
LOC: JASU-SURG 04:23
PROVIDERS: ATTEND Obstetrics & Gynecology
PROC: 0UJD8ZZ Inspection of Uterus and Cervix, Via Natural or Artificial Opening Endoscopic (ICD-10-PCS; principal; 2022-08-22 10:00)
DX: N84.0 Polyp of corpus uteri (principal)
CPT/HCPCS: 88305-TC; 94760

== ENCOUNTER 2023-06-25 16:55 | Emergency (ER) | payer BC ==
[2023-06-25] MEDS ORDERED: ONDANSETRON 4 MG/2 ML VIAL IVPUSH ONE (17:13)
[2023-06-25] MEDS ORDERED: SODIUM CHLORIDE 0.9% 500 ML INFUS.BAG IV ONE (17:13)
[2023-06-25] MEDS ORDERED: morphine CARPU-JECT 4 MG/1 ML DISP.SYRIN IVPUSH ONE (17:19)
[2023-06-25] MEDS ORDERED: ONDANSETRON 4 MG/2 ML VIAL ONE (17:21)
[2023-06-25] MEDS ORDERED: morphine SULFATE 4 MG/ML VIAL ONE (17:21)
[2023-06-25] MEDS ORDERED: MAG HYDROX/AL HYDROX/SIMETH 30 ML UNIT-DOSE CUP PO ONE (18:02)
[2023-06-25] MEDS ORDERED: MAG HYDROX/AL HYDROX/SIMETH 30 ML UNIT-DOSE CUP ONE (18:08)
[2023-06-25 18:23] LABS: HEMATOCRIT 40.9 % (32.4-45.2); HEMOGLOBIN 13.9 G/dL (10.7-15.3); MCH 31.5 pg (25.7-33.7); MCHC 33.9 g/dl (32.0-36.0); MEAN CELL VOLUME 92.7 fl (80-96); MEAN PLT VOLUME 9.5 fl (7.5-11.1); PLATELET COUNT 138.5 10^3/uL (134-434); RBC 4.41 10^6/uL (3.60-5.2); RDW 13.8 % (11.6-15.6); WHITE BLOOD COUNT 5.6 10^3/uL (4.0-10.8)
[2023-06-25] MEDS ORDERED: KETOROLAC TROMETHAMINE 15 MG/ML VIAL IVPUSH ONE (18:25)
[2023-06-25] MEDS ORDERED: KETOROLAC TROMETHAMINE 15 MG/ML VIAL ONE (18:31)
[2023-06-25 19:13] LABS: ALBUMIN 4.1 g/dl (3.4-5.0); BILIRUBIN,TOTAL 0.3 mg/dl (0.2-1); CALCIUM 9.7 mg/dl (8.5-10.1); CREATININE 0.9 mg/dl (0.6-1.3); POTASSIUM 4.2 mmol/L (3.5-5.1); TOT PROT 8.1 g/dl (6.4-8.2)
[2023-06-25 20:15] LABS: PLATELET ESTIMATE SLT DECREASE
[2023-06-25 20:27] VITALS: RESP 16; TEMP 98.3
[2023-06-25] MEDS ORDERED: ACETAMINOPHEN INJECTION 100 ML IVPB ONE (21:17)
[2023-06-25] MEDS ORDERED: ACETAMINOPHEN 1000 MG/100 ML BAG IVPB ONE (21:19)
[2023-06-25 21:23] VITALS: BMI 38.0
[2023-06-25] MEDS ORDERED: LISINOPRIL 20 MG TABLET PO ONE (22:35)
[2023-06-25] MEDS ORDERED: LISINOPRIL 10 MG TABLET ONE (22:35)
[2023-06-25] MEDS ORDERED: NEBIVOLOL 10 MG TABLET (FP) PO ONE (22:36)
[2023-06-25 22:42] VITALS: BP 155/60; PULSE 56
== END 2023-06-25 23:24 | disposition short-term general hospital (02) ==
LOC: FER 16:55
PROC: 3E033NZ Introduction of Analgesics, Hypnotics, Sedatives into Peripheral Vein, Percutaneous Approach (ICD-10-PCS; principal; 2023-06-25)
PROC: 3E0333Z Introduction of Anti-inflammatory into Peripheral Vein, Percutaneous Approach (ICD-10-PCS; 2023-06-25)
PROC: 3E033GC Introduction of Other Therapeutic Substance into Peripheral Vein, Percutaneous Approach (ICD-10-PCS; 2023-06-25)
PROC: 3E033GC Introduction of Other Therapeutic Substance into Peripheral Vein, Percutaneous Approach (ICD-10-PCS; 2023-06-25)
DX: R10.13 Epigastric pain (principal); R11.2 Nausea with vomiting, unspecified; I10 Essential (primary) hypertension; R10.821 Right upper quadrant rebound abdominal tenderness; K85.90 Acute pancreatitis without necrosis or infection, unspecified; Z20.822 Contact with and (suspected) exposure to COVID-19
CPT/HCPCS: 0241U-QW; 36415; 74177-TC; 80053; 81003; 81015; 83690; 84484; 85027; 93005; 99285-25; Q9967